=== PATIENT | female | born 1980 | race Caucasian/White ===

== ENCOUNTER 2016-04-14 07:30 | Inpatient (IN) | payer BC ==
[2016-04-14 09:23] LABS: HEMOGLOBIN 11.3 gm/dl (12.3-15.3); WHITE BLOOD COUNT 8.8 K/UL (4.5-11.0)
[2016-04-15 03:02] LABS: HEMOGLOBIN 8.9 gm/dl (12.3-15.3)
[2016-04-16] MEDS ORDERED: COLACE 100MG C100 MG PO (10:38)
== END 2016-04-16 13:44 | disposition home or self-care (01) | DRG 775 ==
LOC: GENOP 07:30 → OB 08:46
PROVIDERS: ADMIT Obstetrics & Gynecology
PROC: 10E0XZZ Delivery of Products of Conception, External Approach (ICD-10-PCS; principal; 2016-04-14)
PROC: 0W8NXZZ Division of Female Perineum, External Approach (ICD-10-PCS; 2016-04-14)
DX: O80 Encounter for full-term uncomplicated delivery (principal); Z3A.39 39 weeks gestation of pregnancy; Z37.0 Single live birth; Z28.21 Immunization not carried out because of patient refusal
CPT/HCPCS: 36415; 51702; 81001; 85014; 85018; 85025; J2405; J2590; J2795; J3010; J7120